=== PATIENT | female | born 1975 | race Caucasian/White ===

== ENCOUNTER 2018-09-16 13:09 | Day surgery (SDC) | payer OTHER ==
--- NOTE | 2018-09-15 18:52 | PDGENHP ---
History and Physical - Chief Complaint left breast cancer - History of Present Illness 43 y/o female with recently diagnosed left breast cancer clinical stage I. This was found on diagnostic mammo/ultrasound ordered for left breast bloody nipple discharge. The tumor was found in the LUOQ 10 cm from the nipple. Ultrasound core biopsy showed an invasive ductal CA, ER+MI+ Her2 neg, grade 1. An MRI showed a second enhancing mass in the subareolar area suspicious for a papilloma. She is admitted now for left breast excisional biopsy of the subareolar nodule to exclude a second malignancy before proceeding with definitive surgery History Information - Allergies/Home Medication List Allergies/Adverse Reactions: amoxicillin [From Augmentin] Allergy (Verified 09/15/18 15:38) extreme itching clavulanic acid [From Augmentin] Allergy (Verified 09/15/18 15:38) extreme itching Home Medications: Levothyroxine 09/15/18 [Last Taken 09/16/18] Vitamin D 09/15/18 [Last Taken 09/15/18] I have personally reviewed and updated: family history, medical history, social history, surgical history - Past Medical History cancer (melanoma 2000) Additional medical history: hypothyroidism, complicated by HELP, - Surgical History Reports: cancer surgery (melanoma excision 2000), cholecystectomy - Family History Positive for: cancer (brother with malignant brain tumor age 15, ) - Social History Smoking Status: Never smoked Alcohol Use: Occasionally Drug Use: None Additional social history: 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 She is to Dex and they have 3 children Review of Systems Review of Systems: Skin: Reports: no symptoms Neurological: Reports: anxiety Hematologic/Lymphatic: Reports: no symptoms Physical Exam Physical Exam: Constitutional: no apparent distress Eyes: EOMI Ears, Nose, Mouth, Throat: hearing normal Cardiovascular: regular rate and rhythym, no murmur, rub, or gallop, other ( split S2) Respiratory: no respiratory distress, no rales or rhonchi, clear to auscultation Skin: warm, normal color, other (breast exam: split left nipple is chronic, 12: 00 nodular cord extending cephalad c/w obstructed duct, thickening UOQ at biopsy site, fatty left axillary node 1.5 x 2 cm) Psychiatric: interacting appropriately Lymph, Heme, Immunologic: no cervical LAD, no supraclavicular LAD Lab Data & Imaging Review Visualized and Interpreted imaging results: Yes Interpretation: MRI left breast mass UOQ 9-10 mm with clip. subareolar enhancing nodule, smooth bordered with dilated ducts coursing cephalad. no abnormal enhancement in regional nodes or right breast Assessment & Plan Assessment: 1. clinical stage I left breast CA (T1N0) with subareolar nodule on MRI and presentation of bloody nipple discharge. 2. hypothyroidism Plan: I recommended excisional biopsy of the left subareolar nodule to rule out a second cancer. If the nodule is a benign papilloma she would remain a candidate for breast conservation. We discussed the procedure, risks and expected recovery Informed consent was obtained.
[2018-09-16] MEDS ORDERED: ceFAZolin 2 GM/DEXTROSE 100 ML IV ONE (13:26)
[2018-09-16] MEDS ORDERED: LR 1,000 ML IV ONE (13:27)
[2018-09-16] MEDS ORDERED: AVITENE POWDER 1 GM JAR TP ONE ×2 (14:38→15:47)
[2018-09-16] MEDS ORDERED: BUPIVACAINE 0.25% 10 ML SDV ONE (14:38)
[2018-09-16] MEDS ORDERED: LIDOCAINE 1% 300 MG/30 ML SDV ONE (14:38)
[2018-09-16] MEDS ORDERED: ONDANSETRON 4 MG/2 ML VIAL IVP PRN (15:35)
[2018-09-16] MEDS ORDERED: oxyCODONE IR 5 MG TAB PO PRN (15:35)
[2018-09-16] MEDS ORDERED: NALOXONE HCL 0.4 MG/ML INJ IVP PRN (15:35)
[2018-09-16] MEDS ORDERED: HYDROmorphONE/DILAUDID 2 MG/ML INJ IVP PRN (15:35)
[2018-09-16] MEDS ORDERED: ACETAMINOPHEN 500 MG TAB PO PRN (15:35)
[2018-09-16] MEDS ORDERED: DEXAMETHASONE 4 MG/ML VIAL IVP PRN (15:35)
[2018-09-16] MEDS ORDERED: fentaNYL 100 MCG/2 ML INJ IVP PRN (15:35)
[2018-09-16] MEDS ORDERED: MIDAZOLAM 2 MG/2 ML VIAL IVP ONE (15:35)
[2018-09-16] MEDS ORDERED: ALBUTEROL 3 ML DEYVIAL IH PRN (15:35)
--- NOTE | 2018-09-16 15:36 | PDANEPAE ---
ANE History of Present Illness L Breast ANE Past Medical History - Cardiovascular History Hx Hypertension: No Hx Arrhythmias: No Hx Chest Pain: No Hx Coronary Artery / Peripheral Vascular Disease: No Hx CHF / Valvular Disease: No Hx Palpitations: No - Pulmonary History Hx COPD: No Hx Asthma/Reactive Airway Disease: No Hx Recent Upper Respiratory Infection: No Hx Oxygen in Use at Home: No Hx Sleep Apnea: No Sleep Apnea Screening Result - Last Documented: Negative - Neurologic History Hx Cerebrovascular Accident: No Hx Seizures: No Hx Dementia: No - Endocrine History Hx Diabetes: No Endocrine History Comment: hypothyroidism - Renal History Hx Renal Disorders: No - Liver History Hx Hepatic Disorders: No - Neurological & Psychiatric Hx Hx Neurological and Psychiatric Disorders: No - Cancer History Hx Cancer: Yes Cancer History Comment: breast ca currently - Congenital Disorder History Hx Congenital Disorders: No - GI History Hx Gastrointestinal Disorders: No - Other Health History Other Health History: none - Chronic Pain History Chronic Pain: No - Surgical History Prior Surgeries: flaco. uterine ablation ANE Review of Systems Review of Systems: - Exercise capacity METS (RN): 4 METS ANE Patient History - Allergies Allergies/Adverse Reactions: amoxicillin [From Augmentin] Allergy (Verified 09/15/18 15:38) extreme itching clavulanic acid [From Augmentin] Allergy (Verified 09/15/18 15:38) extreme itching - Home Medications Home Medications: Levothyroxine 09/15/18 [Last Taken 09/16/18] Vitamin D 09/15/18 [Last Taken 09/15/18] - NPO status NPO Since - Liquids (Date): 09/16/18 NPO Since - Liquids (Time): 11:30 NPO Since - Solids (Date): 09/16/18 NPO Since - Solids (Time): 05:25 - Smoking Hx Smoking Status: Never smoked - Alcohol Use Alcohol Use: Occasionally - Family Anes Hx Family Hx Anesthesia Complications: none ANE Labs/Vital Signs - Vital Signs Blood Pressure: 116/84 Heart Rate: 70 Respiratory Rate: 16 O2 Sat (%): 100 Height: 162.56 cm Weight: 63.957 kg ANE Physical Exam - Airway Neck exam: FROM Mallampati Score: Class 2 Mouth exam: normal dental/mouth exam - Pulmonary Pulmonary: clear to auscultation - Cardiovascular Cardiovascular: regular rate and rhythym - ASA Status ASA Status: II ANE Anesthesia Plan Anesthesia Plan: GA w LMA
[2018-09-16] MEDS ORDERED: PROPOFOL 200 MG/20 ML VIAL ONE (15:39)
[2018-09-16] MEDS ORDERED: fentaNYL 100 MCG/2 ML INJ ONE ×2 (15:40→17:11)
--- NOTE | 2018-09-16 15:40 | PDHPUP ---
History & Physical Update H&P update statement: This history and physical update is based on an assessment of the patient which was completed after admission or registration (within 24 hours), but prior to the surgery/procedure. H&P update: H&P reviewed & patient examined, no change in patient's condition since H&P completed
[2018-09-16] MEDS ORDERED: LIDOCAINE 2% 5 ML SDV ONE (15:41)
[2018-09-16] MEDS ORDERED: DEXAMETHASONE 4 MG/ML VIAL ONE (16:14)
[2018-09-16] MEDS ORDERED: ONDANSETRON 4 MG/2 ML VIAL ONE (16:14)
[2018-09-16] MEDS ORDERED: BACITRACIN ZINC 14.2 GM OINTTUBE TP ONE (16:45)
[2018-09-16] MEDS ORDERED: DIAZEPAM 5 MG/ML 1 ML SYR IVP PRN (16:58)
--- NOTE | 2018-09-16 16:58 | POSTANESTH ---
Post Anesthetic Evaluation Cardiovascular Status: Normal, Stable Respiratory Status: Normal, Stable Level of Consciousness/Mental Status: Can Participate in Eval, Mildly Sleepy, Arousable Pain Control: Adequate, Prn Tx Ordered Nausea/Vomiting Control: Adequate, Prn Tx Ordered Complications Possibly Related to Anesthesia: None Noted
[2018-09-16] MEDS ORDERED: traMADol 50 MG TAB PO PRN (17:09)
[2018-09-16] MEDS ORDERED: oxyCODONE IR 5 MG TAB ONE (17:11)
--- NOTE | 2018-09-16 17:23 | POSTOPPROG ---
Post Op Note Date of Operation: 09/16/18 Surgeon: Byron Bourne (, FACS) Anesthesiologist: Santino Sanford DO Anesthesia: LMA Pre-op Diagnosis: left subareolar nodule/LUOQ breast cancer Procedure: excisional biopsy left Findings: dilated subareolar ducts Inf/Abcess present in the surg proc area at time of surgery?: No EBL: Minimal (10 ml) Specimen(s): left breast superficial and deep subareolar breast tissue
[2018-09-16 17:35] VITALS: BP 130/80
--- NOTE | 2018-09-17 05:31 | GOP ---
DATE OF OPERATION: 09/16/2018 SURGEON: Byron Bourne MD ANESTHESIA: General by laryngeal mask, Santino Sanford DO. PREOPERATIVE DIAGNOSIS: 1. Left breast cancer, upper outer quadrant. 2. Left subareolar nodule with suspicious enhancement on MRI. POSTOPERATIVE DIAGNOSIS: 1. Left breast cancer, upper outer quadrant. 2. Left subareolar nodule with suspicious enhancement on MRI. PROCEDURE PERFORMED: Left excisional breast biopsy, subareolar nodule. FINDINGS: Dilated subareolar ducts with normal surrounding fibrocystic changes, inverted nipple, chr onic. ESTIMATED BLOOD LOSS: 10 cc. DESCRIPTION OF PROCEDURE: After informed consent was obtained, the patient was brought to the operat ing room and placed supine. The left breast was prepped and draped in usual fashion after general an esthesia was administered. Before proceeding, a time-out and identification of patient was performed . The left areolar border was infiltrated and a superior incision was made between the 11 o'clock and 2 o'clock position. Dissection was carried out into the deep subcutaneous plane, mobilizing and excis ing the subareolar ductal tissue from the midportion of the nipple cephalad to the 12 o'clock positio n. After the tissue was excised, it was inspected and noted to contain some dilated ducts. It was n ot bisected, but left intact and submitted to Pathology for permanent section. This was the area annika t corresponded to the abnormal finding on MRI. A small amount of additional subareolar ductal tissue was excised along with the central portion of the inverted nipple to allow for secondary reconstruct ion. This tissue was submitted also for permanent section. The nipple was reconstructed with interr upted 4-0 Monocryl sutures in the deep subdermal plane and interrupted 6-0 Prolene sutures for the sk in. Hemostasis was secured with cautery within the biopsy cavity. The subcutaneous tissues were lalito roximated with 3-0 Vicryl sutures. Skin was closed with 4-0 Monocryl suture in a subcuticular fashio n. Topical Dermabond was applied. The patient was extubated and returned to the recovery room in sa tisfactory condition. Needle, sponge, and instrument count were correct. COMPLICATIONS: None. /[id number]/MODL
== END 2018-09-16 17:50 | disposition home or self-care (01) ==
LOC: FSGY 13:09
PROVIDERS: ATTEND Surgery
DX: C50.512 Malignant neoplasm of lower-outer quadrant of left female breast (principal); N64.89 Other specified disorders of breast; N64.53 Retraction of nipple; E03.9 Hypothyroidism, unspecified; Z17.0 Estrogen receptor positive status [ER+]; Z85.820 Personal history of malignant melanoma of skin
CPT/HCPCS: J0690; J1100; J2250; J2405; J2704; J3010

== ENCOUNTER 2018-09-30 06:28 | Day surgery (SDC) | payer OTHER ==
[2018-09-30] MEDS ORDERED: ceFAZolin 2 GM/DEXTROSE 100 ML IV ONE (07:00)
[2018-09-30] MEDS ORDERED: LORazepam 2 MG/ML INJ IVP ONE (07:00)
[2018-09-30] MEDS ORDERED: LIDOCAINE 1% 2 ML INJ ID PRN (07:00)
[2018-09-30] MEDS ORDERED: LR 1,000 ML IV ONE (07:00)
[2018-09-30] MEDS ORDERED: ACETAMINOPHEN 325 MG TAB PO ONE (07:30)
[2018-09-30] MEDS ORDERED: LIDOCAINE 1% 300 MG/30 ML SDV ONE (07:37)
[2018-09-30] MEDS ORDERED: LORazepam 2 MG/ML INJ ONE (07:42)
[2018-09-30] MEDS ORDERED: BUPIVACAINE 0.25% 10 ML SDV ONE ×2 (09:18→12:48)
[2018-09-30] MEDS ORDERED: MIDAZOLAM 2 MG/2 ML VIAL IVP ONE (10:35)
--- NOTE | 2018-09-30 10:37 | PDANEPAE ---
ANE History of Present Illness L partial mastectomy ANE Past Medical History - Cardiovascular History Hx Hypertension: No Hx Arrhythmias: No Hx Chest Pain: No Hx Coronary Artery / Peripheral Vascular Disease: No Hx CHF / Valvular Disease: No Hx Palpitations: No - Pulmonary History Hx COPD: No Hx Asthma/Reactive Airway Disease: No Hx Recent Upper Respiratory Infection: No Hx Oxygen in Use at Home: No Hx Sleep Apnea: No Sleep Apnea Screening Result - Last Documented: Negative - Neurologic History Hx Cerebrovascular Accident: No Hx Seizures: No Hx Dementia: No - Endocrine History Hx Diabetes: No Endocrine History Comment: hypothyroidism - Renal History Hx Renal Disorders: No - Liver History Hx Hepatic Disorders: No - Neurological & Psychiatric Hx Hx Neurological and Psychiatric Disorders: No - Cancer History Hx Cancer: Yes Cancer History Comment: breast ca currently - Congenital Disorder History Hx Congenital Disorders: No - GI History Hx Gastrointestinal Disorders: No - Other Health History Other Health History: recent left sided epistaxis, treated by ENT with silver nitrate- note on chart - Chronic Pain History Chronic Pain: No - Surgical History Prior Surgeries: 09/16/18 left breast biopsy with Johs. sam. uterine ablation ANE Review of Systems Review of systems is: negative Review of Systems: - Exercise capacity METS (RN): 4 METS ANE Patient History - Allergies Allergies/Adverse Reactions: amoxicillin [From Augmentin] Allergy (Verified 09/27/18 12:02) extreme itching clavulanic acid [From Augmentin] Allergy (Verified 09/27/18 12:02) extreme itching - Home Medications Home medications: home medication list seen and reviewed Home Medications: Levothyroxine 09/15/18 [Last Taken 09/29/18] Vitamin D 09/15/18 [Last Taken 09/29/18] traMADol [Ultram 50 mg (*)] 09/27/18 [Last Taken 09/27/18] - NPO status NPO Status: no food or drink >8 hours NPO Since - Liquids (Date): 09/29/18 NPO Since - Liquids (Time): 22:00 NPO Since - Solids (Date): 09/29/18 NPO Since - Solids (Time): 20:00 - Anes Hx Anes Hx: no prior problems - Smoking Hx Smoking Status: Never smoked - Family Anes Hx Family Anes Hx: none Family Hx Anesthesia Complications: none ANE Labs/Vital Signs - Vital Signs Vital Signs: reviewed preoperatively; see RN documention for details Blood Pressure: 120/86 Heart Rate: 91 Respiratory Rate: 11 O2 Sat (%): 93 Height: 162.56 cm Weight: 63.957 kg ANE Physical Exam - Airway Neck exam: FROM Mallampati Score: Class 2 Mouth exam: normal dental/mouth exam - Pulmonary Pulmonary: no respiratory distress - Cardiovascular Cardiovascular: regular rate and rhythym - ASA Status ASA Status: II ANE Anesthesia Plan Anesthesia Plan: GA w LMA
[2018-09-30] MEDS ORDERED: MIDAZOLAM 2 MG/2 ML VIAL ONE (10:41)
[2018-09-30] MEDS ORDERED: DEXAMETHASONE 4 MG/ML VIAL ONE (10:46)
[2018-09-30] MEDS ORDERED: ONDANSETRON 4 MG/2 ML VIAL ONE ×2 (10:46→15:45)
[2018-09-30] MEDS ORDERED: LIDOCAINE 2% 100 MG/5 ML SYR ONE (10:46)
[2018-09-30] MEDS ORDERED: fentaNYL 100 MCG/2 ML INJ ONE ×2 (10:46→14:02)
[2018-09-30] MEDS ORDERED: PROPOFOL 200 MG/20 ML VIAL ONE (10:46)
[2018-09-30] MEDS ORDERED: HYDROmorphONE/DILAUDID 2 MG/ML INJ IVP PRN (12:47)
[2018-09-30] MEDS ORDERED: NALOXONE HCL 0.4 MG/ML INJ IVP PRN (12:47)
[2018-09-30] MEDS ORDERED: oxyCODONE IR 5 MG TAB PO PRN (12:47)
[2018-09-30] MEDS ORDERED: DEXAMETHASONE 4 MG/ML VIAL IVP PRN (12:47)
[2018-09-30] MEDS ORDERED: ACETAMINOPHEN 500 MG TAB PO PRN (12:47)
[2018-09-30] MEDS ORDERED: ONDANSETRON 4 MG/2 ML VIAL IVP PRN (12:47)
[2018-09-30] MEDS ORDERED: MEPERIDINE 25 MG/0.5 ML AMP IVP PRN (12:47)
[2018-09-30] MEDS ORDERED: HYDROCODONE/APAP 5/325 TAB PO PRN (12:47)
[2018-09-30] MEDS ORDERED: PROMETHAZINE HCL 25 MG/ML INJ IVP PRN (12:47)
--- NOTE | 2018-09-30 12:48 | POSTANESTH ---
Post Anesthetic Evaluation Cardiovascular Status: Normal, Stable, Similar to Pre-Op Cond Respiratory Status: Normal, Stable, Similar to Pre-op Cond. Level of Consciousness/Mental Status: Can Participate in Eval, Mildly Sleepy, Arousable Pain Control: Adequate, Prn Tx Ordered Nausea/Vomiting Control: Adequate, Prn Tx Ordered Complications Possibly Related to Anesthesia: None Noted
[2018-09-30] MEDS: AVITENE POWDER 1 GM JAR TP ONE ×2 (13:22→13:28)
[2018-09-30] MEDS: fentaNYL 100 MCG/2 ML INJ IVP PRN ×2 (14:04→14:15)
--- NOTE | 2018-09-30 14:08 | POSTOPPROG ---
Post Op Note Date of Operation: 09/30/18 Surgeon: Byron Bourne (, FACS) Anesthesiologist: Cholo Smith MD Anesthesia: GET(General Endotracheal) Pre-op Diagnosis: left breast cancer Post-op Diagnosis: same Procedure: Left partial mastectomy/lymphadenectomy Findings: 3/3 sentinel nodes negative Inf/Abcess present in the surg proc area at time of surgery?: No EBL: 50-100 (50ml) Specimen(s): left partial mastectomy, additional superior and anterior margins, 3 sentinel nodes
[2018-09-30] MEDS ORDERED: ACETAMINOPHEN 325 MG TAB PO PRN (14:09)
[2018-09-30] MEDS ORDERED: HYDROmorphONE/DILAUDID 1 MG/ML INJ IVP PRN (14:09)
[2018-09-30] MEDS ORDERED: traMADol 50 MG TAB PO PRN (14:12)
[2018-09-30] MEDS ORDERED: HYDROCODONE/APAP 5/325 TAB ONE (14:36)
[2018-09-30] MEDS ORDERED: HYDROmorphONE/DILAUDID 2 MG/ML INJ ONE (14:44)
[2018-09-30 15:38] VITALS: BP 135/93
--- NOTE | 2018-10-01 06:44 | GOP ---
DATE OF OPERATION: 09/30/2018 SURGEON: Byron Bourne MD, FACS [employer] APPRENTICE: Yessy Mitchell [facility]. ANESTHESIA: General by laryngeal mask. ANESTHESIOLOGIST: Cholo Smith MD. PREOPERATIVE DIAGNOSIS: Left breast carcinoma. POSTOPERATIVE DIAGNOSIS: Left breast carcinoma. PROCEDURE PERFORMED: Left partial mastectomy with sentinel lymph node mapping and superficial axillary lymph node dissection. FINDINGS: 3 sentinel nodes negative for malignancy by frozen section. Partial mastectomy specimen excised with additional superior and anterior margins, inked for orientation, and submitted for specimen mammogram confirming the previously deployed clip. Subsequent permanent section requested. ESTIMATED BLOOD LOSS: 50 mL. DESCRIPTION OF PROCEDURE: After informed consent was obtained, the patient was brought to the operating room and placed under general anesthesia. The left breast and axilla were prepped and draped in usual fashion. Before proceeding, a time-out and identification of the patient were performed. A safe and timely completion of the operation required the help of a qualified engineer first assistant, and Yessy Mitchell was requested to attend. The patient had a wire exiting the left breast in the upper outer quadrant directed medially and posteriorly. This had been placed under ultrasound, and images were reviewed preoperatively. A sentinel node injection had been performed. Lymphoscintigraphy failed to show migration of tracer. The Neoprobe (gamma detector) was used to identify the sentinel nodes in the lower axilla. The skin was marked with a marking pen and infiltrated with 0.25% Marcaine, and a transverse incision was made in the lower axilla, and dissection was carried out through the skin, subcutaneous tissues, and superficial axillary fascia. Deep axillary tissue was dissected sharply, vessels were hemoclipped and divided where needed, and the intercostal brachial nerve was preserved. The first sentinel node was the largest node identified and measured approximately 1.5 x 2 cm. This reflected counts of approximately 2200 counts per minute. This was teased from the surrounding fibrofatty tissue of the axilla, lymphovascular structures were hemoclipped and divided, and the specimen was removed from the field. Two additional smaller sentinel nodes met criteria, and these were adjacent to this first node. These were also dissected from the surrounding fibrofatty tissue of the axilla, preserving adjacent structures. Lymphovascular structures were hemoclipped and divided, and the nodes were removed from the field. All 3 nodes were submitted for frozen section. Hemostasis was secured with spot cautery and hemoclips within the axilla. While we were waiting for the results of the frozen section, partial mastectomy was performed as follows. A planned curvilinear incision was made after infiltrating the skin in the upper outer quadrant. The wire was mobilized into the incision, and the breast tissue around the shaft and tip of the wire was widely excised using a combination of cautery and sharp dissection. The specimen was removed from the field, and at this point the tumor was palpable and appeared to be closest to the anterior and superior margins. The specimen was inked for orientation separately designating the anterior, posterior, superior, inferior, medial, and lateral margins. The specimen was submitted for a specimen mammogram. Additional superior and anterior margins were excised sharply. These were also inked for orientation and submitted for permanent section. Hemostasis was secured within the lumpectomy cavity using cautery. Subsequently, Dr. Hall called to report that the 3 lymph nodes were negative for metastatic malignancy. Prior to closure, immediate tissue transfer was performed for reconstruction of the lumpectomy cavity as follows. The medial and inferior breast tissue appeared most abundant, and this was mobilized in the deep subcutaneous plane for a distance of 2-3 cm from the lumpectomy cavity. This allowed the breast tissue to cantilever over the defect. There was not enough lateral tissue to perform a second tissue transfer. After hemostasis appeared secure within the cavity, Avitene was placed within the cavity, and the adjacent tissue transfer flap was secured to the deep subcutaneous tissues of the lateral lumpectomy cavity with interrupted 2-0 Vicryl sutures. Subcutaneous tissues were approximated with 3-0 Monocryl suture, skin was closed with 4-0 Monocryl suture in a subcuticular fashion. The axillary incision was inspected, and hemostasis appeared secure. Deep subcutaneous tissues were approximated with 3-0 Monocryl suture, skin was closed with 4-0 Monocryl suture. Topical Dermabond was applied to both incisions. Patient was brought extubated to the recovery room in satisfactory condition. Needle, sponge, and instrument counts were correct. COMPLICATIONS: None. /[id number]/MODL MTDD
== END 2018-09-30 16:40 | disposition home or self-care (01) ==
LOC: FIMAGING 06:28 → EDSTATUS 10:45 → FIMAGING 16:40
PROVIDERS: ATTEND Surgery
PROC: 0HBU0ZZ Excision of Left Breast, Open Approach (ICD-10-PCS; principal; 2018-09-30 10:45)
PROC: 3E0W3KZ Introduction of Other Diagnostic Substance into Lymphatics, Percutaneous Approach (ICD-10-PCS; principal; 2018-09-30 10:45)
PROC: 07B60ZX Excision of Left Axillary Lymphatic, Open Approach, Diagnostic (ICD-10-PCS; principal; 2018-09-30 10:45)
DX: C50.412 Malignant neoplasm of upper-outer quadrant of left female breast (principal); Z17.0 Estrogen receptor positive status [ER+]; N64.52 Nipple discharge
CPT/HCPCS: 19301; 38500; 76098; 78195; A9520; J0690; J1100; J1170; J2001; J2060; J2250; J2405; J2704; J3010